=== PATIENT | female | born 2000 | race Caucasian/White ===

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

== ENCOUNTER 2022-01-28 12:42 | Emergency (ER) | payer SELFPAY ==
[2022-01-28 12:43] VITALS: BP 124/94; PULSE 95; RESP 18; TEMP 36.4; O2SAT 98; BMI 45.6
--- NOTE | 2022-01-28 13:13 | EDS_ITS ---
HPI HPI - Female History of Present Illness Chief Complaint: Vag Bleeding Informant: patient Narrative Narrative: Patient presents secondary to spotting and unsure if she may be . She states has a history of irregular periods. Her last normal menstrual cycle was 2 ago. She states 5 days ago she passed 3 very tiny blood clots and 2 days ago had a small amount of spotting. Nothing since. She took 2 home test that both showed a faint line. She has not seen an COMMODITY ANALYST. [facility] Medical History Chlamydia Allergy/AdvReac Type Severity Reaction Status Date / Time No Known Allergies Allergy Verified 01/28/22 12:45 Social History Smoking Status: Never smoker ROS ROS ED Constitutional Constitutional ED: Denies chills or fever(s) Eyes Eyes: Denies change in vision or discharge from eye(s) ENT ENT ED: Denies discharge from eye(s), rhinorrhea or sore throat Cardiovascular Cardiovascular: Denies chest pain or palpitations Respiratory/Chest Respiratory/Chest: Denies cough or dyspnea Gastrointestinal Gastrointestinal: Reports abdominal pain; Denies diarrhea, nausea or vomiting Genitourinary Genitourinary ED: Denies difficulty urinating or dysuria Musculoskeletal Musculoskeletal: Denies back pain or extremity pain Integumentary Denies Abrasions or rash Neurologic Neurologic: Denies headache(s) or weakness Psychiatric Psychiatric: Denies anxiety or depression Endocrine Endocrinology: Denies polydipsia or polyuria Allergic/Immunologic Allergic/Immunologic ED: Denies lip swelling or urticaria EXAM Physical Exam Const Vital Signs: 01/28/22 12:43 Temperature 97.5 F L Temperature Source Temporal Pulse Rate 95 Respiratory Rate 18 Blood Pressure 124/94 H Blood Pressure Mean 104 Pulse Ox 98 Oxygen Delivery Method Room Air Positive well nourished and well developed General Appearance ED: well developed HEENT Reports normocephalic and head/scalp atraumatic Eyes PERRL and EOMs intact bilaterally Neck supple Chest Wall inspection of chest normal and palpation of chest normal Resp normal respiratory effort and clear to auscultation bilaterally Cardio regular rate and regular rhythm GI normal to inspection, nondistended, normoactive bowel sounds Palpation: soft Back/Spine no CVA tenderness Extremity normal to inspection Neuro oriented x3 and no sensory deficits noted Sensorium / Orientation: alert Motor Exam: strength 5/5 throughout Psych mental status grossly normal Skin no rashes or lesions noted MDM MDM MDM Narrative Medical decision making narrative: hCG quant is sent. Lab Data Labs: Laboratory Results - last 24 hr 01/28/22 13:26 HCG, Quant < 1 Treatment and Re-Evaluation Narrative: Quant returns at less than 1. Patient advised that she is not . She is referred to COMMODITY ANALYST for follow-up. Discharge Plan Triage Chief Complaint: Vag Bleeding ED Provider: Teresa Caro Dx/Rx/DC Orders Clinical Impression: DUH (dysfunctional uterine hemorrhage) Instructions: ED Dysfunctional Uterine Bleeding Primary Care Provider: Care Physician,No Primary Referrals: Dinora Ventura MD [Med Staff - Active Staff] - 1-2 Weeks Care Physician,No Primary [Primary Care Provider] - Disposition Disposition: Home, Self Care
--- NOTE | 2022-01-28 13:49 | CM.ED ---
SW Note BELLO reviewed chart and noted patient has no PCP and no insurance. BELLO provided patient with financial resources packet including medicaid application and information on [facility]. No other issues or concerns voiced. SW remains available if needs arise. Raegan DILL
[2022-01-28 14:06] LABS: hCG Titer Quant., Serum < 1 mIU/mL (1-3)
[2022-01-28 14:30] VITALS: BP 119/67; PULSE 71; RESP 15; O2SAT 98
== END 2022-01-28 14:32 | disposition home or self-care (01) ==
PROVIDERS: Emergency Provider Emergency Medicine; Visit Provider Emergency Medicine
DX: N93.8 Other specified abnormal uterine and vaginal bleeding (principal)
CPT/HCPCS: 84702; 99282

== ENCOUNTER 2022-03-04 16:10 | Emergency (ER) | payer SELFPAY ==
[2022-03-04 16:10] VITALS: BP 151/78; PULSE 91; RESP 16; TEMP 36.6; O2SAT 99; BMI 42.9
--- NOTE | 2022-03-04 17:31 | ED.RN ---
PT STATES SHE IS TIRED OF WAITING, WILL COME BACK LATER WHEN IT'S NOT SO BUSY. STATES HER FRIEND KATEY WORKS HERE AND WILL TELL HER WHEN IT'S NOT BUSY AND IS A GOOD TIME TO COME IN.
== END 2022-03-04 17:30 | disposition left against medical advice (07) ==
LOC: ED 18:17
DX: Z53.21 Procedure and treatment not carried out due to patient leaving prior to being seen by health care provider (principal)

== ENCOUNTER 2022-03-04 20:33 | Emergency (ER) | payer SELFPAY ==
[2022-03-04 20:34] VITALS: BP 132/93; PULSE 98; RESP 16; TEMP 36.6; O2SAT 99; BMI 42.9
--- NOTE | 2022-03-04 21:29 | EDS_ITS ---
HPI History of Present Illness Chief Complaint: General Illness Informant: patient Onset/Context/Timing Onset: Days (4 days) Context: Gradual Onset Current Severity: Mild Maximum Severity: Moderate Narrative Narrative: Patient presents with cold-like symptoms over the past 4 days. She states she has had congestion with cough and sore throat. She does not believe she had a fever. She states today she was coughing up a bunch of phlegm and did cough up some blood-streaked mucus. She is missed worse the last several days and they told her to come to the emergency room to get checked out and to get a work note. [facility] Medical History Chlamydia Allergy/AdvReac Type Severity Reaction Status Date / Time No Known Allergies Allergy Verified 03/04/22 20:36 Social History Smoking Status: Never smoker ROS ROS ED Constitutional Constitutional ED: Denies chills or fever(s) Eyes Eyes: Denies change in vision or discharge from eye(s) ENT ENT ED: Reports sore throat and other Details: Head congestion ; Denies discharge from eye(s) or rhinorrhea Cardiovascular Cardiovascular: Denies chest pain or palpitations Respiratory/Chest Respiratory/Chest: Reports cough; Denies dyspnea Gastrointestinal Gastrointestinal: Denies abdominal pain, diarrhea, nausea or vomiting Genitourinary Genitourinary ED: Denies difficulty urinating or dysuria Musculoskeletal Musculoskeletal: Denies back pain or extremity pain Integumentary Denies Abrasions or rash Neurologic Neurologic: Denies headache(s) or weakness Allergic/Immunologic Allergic/Immunologic ED: Denies lip swelling or urticaria EXAM Physical Exam Const Vital Signs: 03/04/22 20:34 03/04/22 21:20 Temperature 98 F Temperature Source Temporal Pulse Rate 98 Respiratory Rate 16 Respiratory Effort Normal Non-Labored Blood Pressure 132/93 H Blood Pressure Mean 106 Pulse Ox 99 Oxygen Delivery Method Room Air Positive well nourished and well developed General Appearance ED: well developed HEENT Reports normocephalic and head/scalp atraumatic HEENT Narrative: TMs clear bilaterally. Posterior pharynx exam is normal. Eyes PERRL and EOMs intact bilaterally Neck supple Chest Wall inspection of chest normal and palpation of chest normal Resp normal respiratory effort and clear to auscultation bilaterally Cardio regular rate and regular rhythm GI normal to inspection, nondistended, normoactive bowel sounds Palpation: soft Extremity normal to inspection Neuro oriented x3 and no sensory deficits noted Sensorium / Orientation: alert Motor Exam: strength 5/5 throughout Psych mental status grossly normal Skin no rashes or lesions noted MDM MDM MDM Narrative Medical decision making narrative: Patient given Zofran for nausea. Chest x-ray obtained along with swab for COVID and influenza. Radiography Diagnostic Testing: Clinical Impression(s) from Imaging Studies Chest X-Ray 03/04/22 21:55 IMPRESSION: Poor inspiration with some bibasilar atelectasis. Electronically Signed: Tawanda Larios MD at 22:08 EST , Treatment and Re-Evaluation Narrative: COVID and influenza swabs are negative. Chest x-ray per my interpretation reveals no focal infiltrate. Radiology interpretation is reviewed. Patient advised that she has a viral illness. This will need to run its course. I will write her off work for today. Discharge Plan Triage Chief Complaint: General Illness ED Provider: Teresa Caro Dx/Rx/DC Orders Clinical Impression: Viral URI with cough Instructions: ED URI, Viral, No Abx (Adult) Stand Alone Forms: ED Work / School Excuse Primary Care Provider: Care Physician,No Primary Referrals: Avila Diehl DO [Med Staff - Ship'S Master] - As Needed Care Physician,No Primary [Primary Care Provider] - Disposition Disposition: Home, Self Care
[2022-03-04] MEDS: Ondansetron ODT 4 MG Tablet PO (21:49)
--- NOTE | 2022-03-04 21:55 | RAD_ITS ---
STUDY: X-RAY CHEST REASON FOR EXAM: Female, 21 years old. cough TECHNIQUE: PA and lateral views of the chest. COMPARISON: None. FINDINGS: Poor inspiration with some bibasilar atelectasis. There is no demonstrated pleural abnormality. Normal size heart. Normal mediastinum and fito. Normal visualized pulmonary arteries. Normal visualized aortic arch and descending thoracic aorta. Normal visualized thoracic spine. Normal visualized ribs, clavicles, and shoulders. There is no demonstrated abnormality of the visualized soft tissue structures of the upper abdomen. RAD/Chest PA and Lateral IMPRESSION: Poor inspiration with some bibasilar atelectasis. Electronically Signed: Tawanda Larios MD at 22:08 EST ,
[2022-03-04 22:30] VITALS: PULSE 75; RESP 15; O2SAT 98
== END 2022-03-04 22:33 | disposition home or self-care (01) ==
PROVIDERS: Emergency Provider Emergency Medicine; Visit Provider Emergency Medicine
DX: J06.9 Acute upper respiratory infection, unspecified (principal); R05.9 Cough, unspecified
CPT/HCPCS: 71046; 87428; 99283